=== PATIENT | male | born 1975 ===

== ENCOUNTER 2024-06-12 18:29 | Outpatient (REF) | payer BC, SELFPAY ==
[2024-06-12 14:31] LABS: Abs Immature Grans 0.02 10^3/uL (0.0-0.06); Absolute Basophil Count 0.06 10^3/uL (0.0-0.2); Absolute Eosinophil Count 0.38 10^3/uL (0.0-0.7); Absolute Lymphocyte Count 2.11 10^3/uL (1.2-3.4); Absolute Monocyte Count 0.44 10^3/uL (0.1-0.8); Absolute Neutrophil Count 4.55 10^3/uL (1.2-6.7); Basophils % 0.8 %; HCT 44.7 % (40.0-50.0); HGB 14.8 g/dL (13.5-17.5); Immature Grans % 0.3 %; Lymphocytes % 27.9 %; MCH 28.1 pg (27.0-33.0); MCHC 33.1 % (32.0-36.0); MCV 85 fL (80-95); MPV 10.3 fL (8.0-11.0); Monocytes % 5.8 %; Neutrophils % 60.2 %; Platelet Count 264 10^3/uL (130-400); RBC 5.26 10^6/uL (4.36-5.78); RDW 12.2 % (11.8-14.1); RDW-SD 37.7 fL; WBC 7.56 10^3/uL (4.4-10.8)
[2024-06-12 15:17] LABS: ALT 40 U/L (16-63); AST 17 U/L (15-37); Albumin 4.3 g/dL (3.4-5.0); Alkaline Phosphatase 95 U/L (46-116); Anion Gap 7.4 mmol/L (3-11); BUN 16 mg/dL (7-18); Bilirubin, Total 0.6 mg/dL (0.2-1.0); CO2 28.6 mmol/L (21.0-32.0); Calcium 9.5 mg/dL (8.5-10.1); Calculated LDL 162 mg/dL (<100); Chloride 106 mmol/L (98-107); Cholesterol 254 mg/dL (<200); Estimated GFR 92.26 (mL/min/1.73m2); Glucose 118 mg/dL (74-106); HDL Cholesterol 43 mg/dL (>or=40); Potassium 4.6 mmol/L (3.5-5.1); Sodium 142 mmol/L (136-145); Total Protein 7.7 g/dL (6.4-8.2); Triglyceride 247 mg/dL (<150)
== END 2024-06-12 18:30 | disposition home or self-care (01) ==
LOC: LBN 18:29
PROVIDERS: PCP Family Medicine; Visit Provider Nurse Practitioner Family
DX: R42 Dizziness and giddiness (principal); R03.0 Elevated blood-pressure reading, without diagnosis of hypertension; Z13.220 Encounter for screening for lipoid disorders
CPT/HCPCS: 80053; 80061; 85025